=== PATIENT | male | born 2000 | race Hispanic/Latino ===

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

== ENCOUNTER 2019-07-25 18:40 | Emergency (ER) | payer OTHER, SELFPAY ==
--- OUTSIDE RECORDS SUMMARY | 2019-07-25 18:42 | XMS REPORT ---
:2000 [facility] [address] [place] [address] Care Team Providers Name Role Phone Unavailable Unavailable Unavailable Problems This patient has no known problems. Allergies, Adverse Reactions, Alerts This patient has no known allergies or adverse reactions. Medications This patient has no known medications.
--- NOTE | 2019-07-25 20:46 | EDPHYS ---
Physician Documentation [facility] Name: Roger Sanz Age: 18 yrs Sex: Male : 2000 Arrival Date: 07/25/2019 Time: 18:43 Bed Treatment Private MD: MEL Physician Derek Lebron HPI: 07/25 20:45 This 18 yrs old Male presents to ER via Ambulatory with complaints of Ankle kb Injury. 20:45 The patient presents with an injury, pain, that is acute, swelling, tenderness. The kb complaints affect the left ankle. Onset: The symptoms/episode began/occurred 3 week(s) ago. Context: The problem was sustained at a sports field or court, resulted from basketball, The mechanism of injury is unknown. The patient is unable to bear weight. can ambulate using crutches. Associated signs and symptoms: Pertinent positives: swelling. Modifying factors: The symptoms are alleviated by nothing, the symptoms are aggravated by weight bearing, movement. Severity of symptoms: At their worst the symptoms were moderate, in the emergency department the symptoms are unchanged. The patient has not experienced similar symptoms in the past. The patient has not recently seen a physician. Pt injured left ankle 3 weeks ago while playing basketball. Had it x-rayed at the time in [place] and was told it was "cracked in 3 places.' Splint applied and crutches given at that time. Comes in today for bruising, swelling and pain. Reports he doesn't have insurance so he didn't follow up with ortho. Splint still in place. Historical: - Allergies: 19:06 No Known Allergies; dm5 - Home Meds: 19:06 None [Active]; dm5 - PMHx: 19:06 None; dm5 - PSHx: 19:06 right 5th digit; dm5 - Immunization history:: Adult Immunizations up to date. - Social history:: Smoking status: unknown. ROS: 20:39 Constitutional: Negative for fever, chills, and weight loss, Neck: Negative for injury, kb pain, and swelling, Cardiovascular: Negative for chest pain, palpitations, and edema, Respiratory: Negative for shortness of breath, cough, wheezing, and pleuritic chest pain, Abdomen/GI: Negative for abdominal pain, nausea, vomiting, diarrhea, and constipation, Back: Negative for injury and pain, Skin: Negative for injury, rash, and discoloration, Neuro: Negative for headache, weakness, numbness, tingling, and seizure. 20:39 MS/extremity: Positive for injury or acute deformity, decreased range of motion, ecchymosis, pain, swelling, tenderness, of the dorsum of left foot and anterior aspect of left ankle. Exam: 20:38 Constitutional: This is a well developed, well nourished patient who is awake, alert, kb and in no acute distress. Head/Face: Normocephalic, atraumatic. ENT: Nares patent. No nasal discharge, no septal abnormalities noted. Tympanic membranes are normal and external auditory canals are clear. Oropharynx with no redness, swelling, or masses, exudates, or evidence of obstruction, uvula midline. Mucous membranes moist. Neck: Trachea midline, no thyromegaly or masses palpated, and no cervical lymphadenopathy. Supple, full range of motion without nuchal rigidity, or vertebral point tenderness. No Meningismus. Chest/axilla: Normal chest wall appearance and motion. Nontender with no deformity. No lesions are appreciated. Cardiovascular: Regular rate and rhythm with a normal S1 and S2. No gallops, murmurs, or rubs. Normal PMI, no JVD. No pulse deficits. Respiratory: Lungs have equal breath sounds bilaterally, clear to auscultation and percussion. No rales, rhonchi or wheezes noted. No increased work of breathing, no retractions or nasal flaring. Abdomen/GI: Soft, non-tender, with normal bowel sounds. No distension or tympany. No guarding or rebound. No evidence of tenderness throughout. Neuro: Awake and alert, GCS 15, oriented to person, place, time, and situation. Cranial nerves II-XII grossly intact. Motor strength 5/5 in all extremities. Sensory grossly intact. Cerebellar exam normal. Normal gait. 20:38 Musculoskeletal/extremity: Extremities: grossly normal except: noted in the anterior aspect of left ankle and dorsum of left foot: decreased ROM, ecchymosis, pain, swelling, tenderness, ROM: limited active range of motion due to pain, Circulation is intact in all extremities. Sensation intact. Weight bearing: can bear weight with assistance only, uses crutches. Vital Signs: 19:06 BP 116 / 61; Pulse 78; Resp 18; Temp 99.0(TE); Pulse Ox 99% on R/A; Weight 68.04 kg; dm5 Height 5 ft. 8 in. (172.72 cm); Pain 10/10; 19:06 Body Mass Index 22.81 (68.04 kg, 172.72 cm) dm5 MDM: 19:34 Patient medically screened. [facility] 20:25 Data reviewed: vital signs, nurses notes. Data interpreted: Pulse oximetry: on room air kb is 99 %. Interpretation: normal. Counseling: I had a detailed discussion with the patient and/or guardian regarding: the historical points, exam findings, and any diagnostic results supporting the discharge/admit diagnosis, the need for outpatient follow up, a orthopedic surgeon, to return to the emergency department if symptoms worsen or persist or if there are any questions or concerns that arise at home. ED course: Pt refused x-ray and new splint. States he already had that done and doesn't want to get charged for it again. . Administered Medications: No medications were administered Disposition: 07/26 07:01 Co-signature as Attending Physician, Derek Lebron MD I agree with the assessment and [facility] plan of care. Disposition: 07/25/19 20:44 Discharged to Home. Impression: Pain in left leg. - Condition is Stable. - Discharge Instructions: Musculoskeletal Pain, Ankle Fracture, [id number]. - Medication Reconciliation Form, Thank You Letter, Antibiotic Education, Prescription Opioid Use form. - Follow up: Emergency Department; When: As needed; Reason: Worsening of condition. Follow up: Private Physician; When: 2 - 3 days; Reason: Recheck today's complaints, Continuance of care, Re-evaluation by your physician. Signatures: Dispatcher [employer] EDVT Ada Kraus, LOADING AND UNLOADING SUPERVISOR-C LOADING AND UNLOADING SUPERVISOR-Alyssa Gutierrez, RN RN Derek Bautista MD MD cha Ballard, Brenda, RN RN bb Corrections: (The following items were deleted from the chart) 07/25 20:24 19:58 Tib Fib Left+RAD.RAD.BRZ ordered. EDVT EDVT 20:24 19:58 Foot Left 3 View+RAD.RAD.BRZ ordered. [facility] EDVT 20:46 20:44 07/25/2019 20:44 Discharged to Home. Impression: Pain in left leg. Condition is bb Stable. Forms are Medication Reconciliation Form, Thank You Letter, Antibiotic Education, Prescription Opioid Use. Follow up: Emergency Department; When: As needed; Reason: Worsening of condition. Follow up: Private Physician; When: 2 - 3 days; Reason: Recheck today's complaints, Continuance of care, Re-evaluation by your physician. kb
--- NOTE | 2019-07-25 20:46 | ER ---
Nurse's Notes [facility] Name: Roger Sanz Age: 18 yrs Sex: Male : 2000 Arrival Date: 07/25/2019 Time: 18:43 Bed Treatment Private MD: Diagnosis: Pain in left leg Presentation: 07/25 19:01 Presenting complaint: Patient states: left ankle previous injured. No new injury today dm5 but states he "it is messed up and I need to get it looked at" I was told to come back. Pain rated at 10/10 with movement. Pt has a splint in place at this time from previous visit to [place] ED. Transition of care: patient was not received from another setting of care. Onset of symptoms was June 2019. Risk Assessment: Do you want to hurt yourself or someone else? Patient reports no desire to harm self or others. Care prior to arrival: None. 19:01 Method Of Arrival: Ambulatory dm5 19:01 Acuity: BERYL 4 dm5 Historical: - Allergies: 19:06 No Known Allergies; dm5 - Home Meds: 19:06 None [Active]; dm5 - PMHx: 19:06 None; dm5 - PSHx: 19:06 right 5th digit; dm5 - Immunization history:: Adult Immunizations up to date. - Social history:: Smoking status: unknown. Screenin:43 Abuse screen: Denies threats or abuse. Nutritional screening: No deficits noted. bb Tuberculosis screening: No symptoms or risk factors identified. Fall Risk None identified. Assessment: 19:43 General: Appears in no apparent distress. Behavior is calm, cooperative. Neuro: Level bb of Consciousness is awake, alert, obeys commands, Oriented to person, place, time, situation. Cardiovascular: No deficits noted. Respiratory: Respiratory effort is even, unlabored, Respiratory pattern is regular. GI: No signs and/or symptoms were reported involving the gastrointestinal system. Derm: Skin is pink, warm \\T\\ dry. Musculoskeletal: pt has splint to left lower leg c/o bruising to toes and lower leg splint has been there x 3 weeks. 20:45 Reassessment: pt left before discharge. bb Vital Signs: 19:06 BP 116 / 61; Pulse 78; Resp 18; Temp 99.0(TE); Pulse Ox 99% on R/A; Weight 68.04 kg; dm5 Height 5 ft. 8 in. (172.72 cm); Pain 10/10; 19:06 Body Mass Index 22.81 (68.04 kg, 172.72 cm) dm5 ED Course: 18:43 Patient arrived in ED. ds1 19:04 Triage completed. dm5 19:07 [facility] Kra[facility]C [facility]. kb 19:07 Derek Lebron MD is Attending Physician. kb 19:43 Patient has correct armband on for positive identification. Bed in low position. Call bb light in reach. Adult w/ patient. Administered Medications: No medications were administered Outcome: 20:44 Discharge ordered by . kb 20:46 Patient left the ED. bb Signatures: Ada Kraus FNP-C FNP-Ckb Markwardt, Deana, RN RN dm5 Ana Mcneil ds1 Roseanne Garcia RN RN bb
[2019-07-25 20:52] VITALS: BP 116/61; TEMP 99; O2SAT 99
== END 2019-07-25 20:46 | disposition home or self-care (01) ==
LOC: ER 18:40
DX: M79.605 Pain in left leg (principal)
CPT/HCPCS: 99281